=== PATIENT | male | born 1940 | race Hispanic/Latino ===

== ENCOUNTER 2019-08-24 15:11 | Outpatient (CLI) | payer MEDICARE ==
--- NOTE | 2019-08-24 15:53 | XRay Report ---
CHEST 2 VIEWS INDICATION: URI DUE TO INFLUENZA. COMPARISON: None FINDINGS: Support devices: None. Heart: Within normal limits. Lungs/pleura: No acute air space or interstitial disease. No pneumothorax. Additional findings: None. IMPRESSION: Unremarkable chest films. No evidence for pneumonia. Signer Name: Raymundo Morocho Jr, MD Signed: 08/24/2019 3:49 PM Workstation Name: [id number]
== END 2019-08-24 15:12 | disposition home or self-care (01) ==
LOC: SPVIMAG 15:11
PROVIDERS: ATTEND Internal Medicine
DX: J10.1 Influenza due to other identified influenza virus with other respiratory manifestations (principal)
CPT/HCPCS: 71046

== ENCOUNTER 2019-11-02 10:40 | Outpatient (CLI) | payer MEDICARE ==
--- NOTE | 2019-11-02 13:26 | XRay Report ---
LUMBOSACRAL SPINE 3 VIEWS INDICATION: SCIATICA OF RIGHT SIDE. COMPARISON: None. IMPRESSION: Borderline bone mineralization. 5 mm anterolisthesis of L4 with respect to L5 is identi fied which appears to be secondary to degenerative facet arthropathy. The remaining lumbar vertebra a re normal in alignment. Mild disc narrowing is present at the lowest 3 levels. There is moderate face t arthropathy throughout the lumbar spine which is most pronounced at the lowest 3 levels. The sacrum and SI joints are unremarkable. No acute injury or bone lesion is identified. Signer Name: Raymundo Morocho Jr, MD Signed: 11/02/2019 1:21 PM Workstation Name: [id number]
== END 2019-11-02 10:41 | disposition home or self-care (01) ==
LOC: SPVIMAG 10:40
PROVIDERS: ATTEND Internal Medicine
DX: M47.816 Spondylosis without myelopathy or radiculopathy, lumbar region (principal); M43.16 Spondylolisthesis, lumbar region
CPT/HCPCS: 72100